=== PATIENT | male | born 2000 | race Two or more races ===

== ENCOUNTER 2021-11-14 10:03 | Emergency (ER) | payer MEDICAID, OTHER ==
[~2021-11-14] VITALS: Ht 175.3 cm; Wt 77.1 kg
[2021-11-14] MEDS ORDERED: CLIN300C8 PO (10:13)
[2021-11-14] MEDS ORDERED: IBUP800T27 PO (10:13)
[2021-11-14 10:18] VITALS: BP 130/92
== END 2021-11-14 10:41 | disposition home or self-care (01) ==
LOC: ER 10:03
DX: K04.7 Periapical abscess without sinus (principal)

== ENCOUNTER 2022-04-08 08:10 | Emergency (ER) | payer MEDICAID ==
[~2022-04-08] VITALS: Ht 177.8 cm; Wt 59.9 kg
[~2022-04-08 08:10] MED LIST: CLIN300C8 PO; IBUP800T27 PO
[2022-04-08 08:15] VITALS: BP 123/78
[2022-04-08] MEDS ORDERED: AMOX-277 PO (08:52)
[2022-04-08] MEDS ORDERED: PRED20TA2 PO (08:52)
== END 2022-04-08 09:41 | disposition home or self-care (01) ==
LOC: ER 08:10
DX: J02.9 Acute pharyngitis, unspecified (principal); E78.5 Hyperlipidemia, unspecified; Z79.1 Long term (current) use of non-steroidal anti-inflammatories (NSAID); Z79.2 Long term (current) use of antibiotics; Z79.899 Other long term (current) drug therapy

== ENCOUNTER 2022-09-04 01:18 | Emergency (ER) | payer MEDICAID ==
[~2022-09-04] VITALS: Ht 177.8 cm; Wt 62.8 kg
[~2022-09-04 01:18] MED LIST changes: +AMOX-277 PO; +PRED20TA2 PO
[2022-09-04 01:49] VITALS: BP 136/81
[2022-09-04] MEDS ORDERED: KETOROLAC TROMETH 60MG/2ML VIAL IM ONE (03:45)
[2022-09-04] MEDS ORDERED: AMOX-277 PO (03:50)
== END 2022-09-04 04:23 | disposition home or self-care (01) ==
LOC: ER 01:22
DX: K04.7 Periapical abscess without sinus (principal); F12.10 Cannabis abuse, uncomplicated; Z88.1 Allergy status to other antibiotic agents
CPT/HCPCS: 96372; 99283; J1885

== ENCOUNTER 2022-11-16 18:42 | Emergency (ER) | payer MEDICAID ==
[~2022-11-16] VITALS: Ht 180.3 cm; Wt 66.2 kg
[2022-11-16] MEDS ORDERED: AMOX-277 PO (20:42)
[2022-11-16] MEDS ORDERED: IBUP800T27 PO (20:42)
[2022-11-16] MEDS ORDERED: cefTRIAXone SOD 1,000 MG VL IM ONE (20:45)
[2022-11-16] MEDS ORDERED: BENZOCAINE (DENTAL) 20 % SPRAY 60ML MT ONE (20:45)
[2022-11-16] MEDS ORDERED: KETOROLAC TROMETH 60MG/2ML VIAL IM ONE (21:00)
[2022-11-16 21:02] VITALS: BP 151/83
== END 2022-11-16 21:04 | disposition home or self-care (01) ==
LOC: ER 18:44
DX: K04.7 Periapical abscess without sinus (principal); F12.10 Cannabis abuse, uncomplicated; Z88.6 Allergy status to analgesic agent; Z88.1 Allergy status to other antibiotic agents
CPT/HCPCS: 96372; 99284; J1885; J0696

== ENCOUNTER 2023-02-08 17:57 | Emergency (ER) | payer MEDICAID, OTHER ==
[~2023-02-08 17:57] MED LIST changes: -AMOX-277 PO; +AMOX875T4 PO; +CLIN300C70 PO; -CLIN300C8 PO; +IBUP-1456 PO; -IBUP800T27 PO
[2023-02-09] MEDS ORDERED: IBUP-1455 PO (08:47)
== END 2023-02-08 18:43 | disposition left against medical advice (07) ==
LOC: ER 17:57
DX: M79.643 Pain in unspecified hand (principal); Z53.21 Procedure and treatment not carried out due to patient leaving prior to being seen by health care provider

== ENCOUNTER 2023-02-09 07:24 | Emergency (ER) | payer OTHER ==
[~2023-02-09] VITALS: Ht 180.3 cm; Wt 65.9 kg
[2023-02-09 07:34] VITALS: BP 109/71
[2023-02-09] MEDS ORDERED: KETOROLAC TROMETH 60MG/2ML VIAL IM ONE (08:00)
[2023-02-09] MEDS ORDERED: IBUP-1455 PO (08:47)
== END 2023-02-09 09:10 | disposition home or self-care (01) ==
LOC: ER 07:24
DX: S60.221A Contusion of right hand, initial encounter (principal); E78.5 Hyperlipidemia, unspecified; Z79.1 Long term (current) use of non-steroidal anti-inflammatories (NSAID); Z79.2 Long term (current) use of antibiotics; Z79.899 Other long term (current) drug therapy; Y04.2XXA Assault by strike against or bumped into by another person, initial encounter; Y93.89 Activity, other specified; Y92.89 Other specified places as the place of occurrence of the external cause; Y99.8 Other external cause status
CPT/HCPCS: 29125; 73130; 96372; 99283; J1885

== ENCOUNTER 2024-07-30 18:55 | Emergency (ER) | payer MEDICAID ==
[~2024-07-30] VITALS: Ht 175.3 cm; Wt 72.0 kg
[~2024-07-30 18:55] MED LIST changes: +CLIN1CAP70 PO; -CLIN300C70 PO; +IBUP-1455 PO
--- NOTE | 2024-07-30 19:15 | ED.PDOC ---
General HPI Comments 23 y.o male presents to the ED for a chief complaint of left sided testicle pain associated with swelling that started 2.5 days ago. Patient reports symptoms presented spontaneously with no recent injury, trauma or urinary symptoms. He denies chills, fever, flank, abdominal or back pain, dysuria, hematuria or other sxs.. Patient denies any medical, surgical history or allergies. Chief Complaint: Testicle Pain Time Seen by MD: 19:07 Primary Care Provider: None Reviewed notes: Nurses Notes, Medications, Allergies Allergies: Coded Allergies: NO KNOWN ALLERGIES (Unverified , 04/08/22) Home Meds Active Scripts Ibuprofen Micronized (Ibuprofen) 800 Mg Tab, 800 MG PO Q8HP PRN, #30 TAB Prov:SHIRLENE PEARL PAC 02/09/23 Ibuprofen (Ibuprofen) 800 Mg Tab, 1 TAB PO TID PRN, #30 TAB 0 Refills Prov:NAZ HARP 11/16/22 Amoxicillin & Pot Clavulanate (Amoxicillin/Potassium Cla) 875 Mg Tab, 1 TAB PO BID for 7 Days, #14 TAB 0 Refills Prov:NAZ HARP 11/16/22 Amoxicillin & Pot Clavulanate (Amoxicillin/Potassium Cla) 875 Mg Tab, 1 TAB PO BID for 10 Days, #20 TAB 0 Refills Prov:MEY GAUTHIER 09/04/22 Prednisone (Prednisone) 20 Mg Tab, 20 MG PO BID for 5 Days, #10 MG 0 Refills Prov:NAZ HARP 04/08/22 Amoxicillin & Pot Clavulanate (Amoxicillin/Potassium Cla) 875 Mg Tab, 1 TAB PO BID for 7 Days, #14 TAB 0 Refills Prov:NAZ HARP 04/08/22 Ibuprofen (Ibuprofen) 800 Mg Tab, 800 MG PO TID PRN, #30 TAB Prov:ABRAHAM HUTTON 11/14/21 Clindamycin Hcl (Clindamycin Hcl) 300 Mg Cap, 300 MG PO QID for 10 Days, #40 CAP Prov:ABRAHAM HUTTON 11/14/21 Information Source: Patient Mode of Arrival: Ambulatory Severity: Moderate Timing: Days (2.5) Duration: Since onset Onset: Spontaneous Symptoms: None History of: None Location male: L Scrotum Penile discharge: None Modifying factors: None associated signs and symptoms: Other Past Medical History PAST MEDICAL HISTORY: Denies Surgical History: Denies all surgeries Family History Family History: Unknown Social History Smoker: Other Alcohol: Occasionally Drugs: Marijuana Lives In: Home Constitutional: denies: chills, diaphoresis, fatigue, fever, malaise, sweats, weakness, others EENTM: denies: blurred vision, double vision, ear bleeding, ear discharge, ear drainage, ear pain, ear ringing, eye pain, eye redness, hearing loss, mouth pain, mouth swelling, nasal discharge, nose bleeding, nose congestion, nose pain, photophobia, tearing, throat pain, throat swelling, voice changes, others Respiratory: denies: cough, hemoptysis, orthopnea, SOB at rest, shortness of breath, SOB with excertion, stridor, wheezing, others Cardiovascular: denies: chest pain, dizzy spells, diaphoresis, Dyspnea on exertion, edema, irregular heart beat, left arm pain, lightheadedness, palpitations, PND, syncope, others Gastrointestinal: denies: abdomen distended, abdominal pain, blood streaked bowels, constipated, diarrhea, dysphagia, difficulty swallowing, hematemesis, melena, nausea, poor appetite, poor fluid intake, rectal bleeding, rectal pain, vomiting, others Genitourinary: reports: testicle pain; denies: burning, dysuria, flank pain, frequency, hematuria, incontinence, penile discharge, penile sore, pain, testicle swelling, urgency, others Neurological: denies: dizziness, fainting, headache, left sided numbness, left sided weakness, numbness, paresthesia, pre-existing deficit, right sided numbness, right sided weakness, seizure, speech problems, tingling, tremors, weakness, others Musculoskeletal: denies: back pain, gout, joint pain, joint swelling, muscle pain, muscle stiffness, neck pain, others Integumetry: denies: bruises, change in color, change in hair/nails, dryness, laceration, lesions, lumps, rash, wounds, others Allergic/Immunocompromised: denies: Difficulty Healing, Frequent Infections, Hives, Itching, others Hematologic/Lymphatic: denies: anemia, blood clots, easy bleeding, easy bruising, swollen glands, others Endocrine: denies: excessive hunger, excessive sweating, excessive thirst, excessive urination, flushing, intolerance to cold, intolerance to heat, u nexplained weight gain, unexplained weight loss, others Psychiatric: denies: anxiety, bipolar disorder, depression, hopeless, panic disorder, schizophrenia, sleepless, suicidal, others All Other Systems: Reviewed and Negative Physical Exam General Appearance: No Apparent Distress HEENT: Normal ENT Inspection Neck: Full Range of Motion, Normal Inspection Respiratory: Lungs Clear, No Accessory Muscle Use, No Respiratory Distress, Normal Breath Sounds Cardiovascular: No Edema, No Murmur, Regular Rate/Rhythm Breast Exam: Deferred Gastrointestinal: Non Tender, Soft Genitalia: Testicle (L testicle mild diffuse tenderness. Normal lie. Cremasteric reflex intact. No edema or scrotal discoloration.) Pelvic: Deferred Rectal: Deferred Extremities: Normal inspection, Normal range of motion, Non-tender, No pedal edema Neurologic: Alert, No Motor Deficits, Normal Affect, Normal Mood, No Sensory Deficits Cerebellar Function: NOT DONE Reflexes: NOT DONE Skin: Dry, Normal Color, Warm Lymphatic: NOT DONE Was a procedure done? Was a procedure done?: No Differential Diagnosis Kidney stone (Female): N/A Penile/Scrotal: Epidiymitis, Prostatitis, UTI, Hydrocele, Testicular Torsion, Urolithiasis X-Ray, Labs, Meds, VS Vital Signs Date Time Temp Pulse Resp B/P (MAP) Pulse Ox O2 Delivery O2 Flow Rate FiO2 07/30/24 21:06 98.8 111 18 125/73 (90) 96 98.8 07/30/24 21:06 111 18 96 Room Air 07/30/24 19:10 98.8 123 18 117/75 (89) 96 Lab Test 07/30/24 19:22 Range/Units White Blood Count 10.2 4.4-10.8 10^3/uL Red Blood Count 4.63 4.5-5.90 10^6/uL Hemoglobin 14.4 13.5-17.5 g/dL Hematocrit 40.8 L 41.0-53.0 % Mean Corpuscular Volume 88.2 80.0-100.0 fL Mean Corpuscular Hemoglobin 31.0 28.0-32.0 pg Mean Corpuscular Hemoglobin Concent 35.1 32.0-36.0 g/dL Red Cell Distribution Width 13.2 11.8-14.3 % Platelet Count 318 140-450 10^3/uL Mean Platelet Volume 6.3 L 6.9-10.8 fL Neutrophils (%) (Auto) 71.2 37.0-80.0 % Lymphocytes (%) (Auto) 15.4 10.0-50.0 % Monocytes (%) (Auto) 12.7 H 0.0-12.0 % Eosinophils (%) (Auto) 0.4 0.0-7.0 % Basophils (%) (Auto) 0.3 0.0-2.0 % Neutrophils # (Auto) 7.3 1.6-8.6 10 ^3/uL Lymphocytes # (Auto) 1.6 0.4-5.4 10 ^3/uL Monocytes # (Auto) 1.3 0-1.3 10 ^3/uL Eosinophils # (Auto) 0 0-0.8 10 ^3/uL Basophils # (Auto) 0 0-0.2 10 ^3/uL Nucleated Red Blood Cells 0.0 % Sodium Level 142 136-145 mmol/L Potassium Level 3.4 L 3.5-5.1 mmol/L Chloride Level 107 98-107 mmol/L Carbon Dioxide Level 25 20-31 mmol/L Anion Gap 10 5-15 Blood Urea Nitrogen 11 9-23 mg/dL Creatinine 0.88 0.700-1.30 mg/dL Glomerular Filtration Rate Calc 122 >90 mL/min BUN/Creatinine Ratio 12.5 10.0-20.0 Serum Glucose 128 H 74-106 mg/dL Calcium Level 9.7 8.7-10.4 mg/dL Current Medications Medications (Trade) Dose Ordered Sig/[place] Route Start Time Stop Time Status Last Admin Acetaminophen/ Hydrocodone Bitart ([place]os[place] 5/325MG Tab) 1 tab ONCE ONCE PO 07/30/24 21:15 07/30/24 21:16 DC 07/30/24 21:10 PROCEDURE(s): TESUS - TESTICULAR ULTRASOUND REASON: L testicular pain ORDER NUMBER(s): [id number], ACCESSION NUMBER(s): [id number] Exam: US TESTICULAR ULTRASOUND Date: 07/30/2024 07:19 PM Clinical History: L testicular pain Comparison: None Technique: Targeted sonographic evaluation of the soft tissues of the [facility] was obtained utilizing grayscale and color Doppler imaging. Findings: RIGHT TESTICLE 4.88 X 3.38 X 4.43 CM. THERE IS NO EVIDENCE OF TESTICULAR TORSION. THE RIGHT EPIDIDYMIS MEASURES 1.78 CM AND APPEARS SLIGHTLY HYPERVASCULAR. LEFT TESTICLE 3.81 x 2.93 x 5.14 cm. There is a left-sided hydrocele. Normal blood flow is seen with no evidence of testicular torsion. The left epididymis measures 1.92 cm appears mildly enlarged and hypervascular. These findings may represent epididymitis. IMPRESSION: 1. No evidence of testicular torsion. 2. Small left hydrocele 3. Increased vascularity to the epididymis with mild enlargement of the left epididymis findings suggest epididymitis. X-Ray, Labs, Meds, VS Comment 23-year-old male with significant past medical history complaining of left testicular pain Vitals remarkable for heart rate 123 Exam remarkable for mild diffuse left testicular tenderness to palpation Testicular ultrasound: IMPRESSION: 1. No evidence of testicular torsion. 2. Small left hydrocele 3. Increased vascularity to the epididymis with mild enlargement of the left epididymis findings suggest epididymitis. CBC and basic metabolic panel remarkable for potassium 3.4, no other abnormalities of acute significance UA pending Patient treated with the following in the ED: Hosston 5/325 mg p.o., K-Dur for 40 mEq p.o., Rocephin 1 g IM On re-evaluation, patient's pain had improved and vitals were stable. Ho spitalization was considered, however the patient had rapid improvement of his symptoms with treatment in the ED, and I no longer feel hospitalization is necessary. Patient appears stable for outpatient treatment and close follow-up Rx ibuprofen, Tylenol, Levaquin Time of 1ST Reevaluation: 19:11 Reevaluation 1ST: Unchanged Patient Education/Counseling: Diagnosis, Treatment, Prognosis Family Education/Counseling: No Family Present Departure 1 Departure Time of Disposition: 21:33 Impression: Primary Impression: Hydrocele Qualified Codes: N43.3 - Hydrocele, unspecified Additional Impression: Epididymitis, left Disposition: HOME / SELF CARE / HOMELESS Condition: Stable Additional Instructions: Your blood tests showed a slightly low potassium, which we have corrected by giving you potassium. Your ultrasound showed epididymitis on the left, which is an infection that is treated with antibiotics. Your ultrasound also showed a small hydrocele on the left, which is a tiny fluid collection that does not require any treatment, but may contribute to the pain you are having. I have prescribed antibiotics to treat the infection, as well as pain medication. Follow-up with your primary doctor in 1-2 days. e-Prescriptions Acetaminophen (Tylenol Extra Strength) 500 Mg Tab 1000 MG PO Q6HP PRN, #30 TAB prn fever or pain Prov: JENNIFER MITCHELL MD 07/30/24 Ibuprofen Micronized (Ibuprofen) 800 Mg Tab 800 MG PO Q8HP PRN, #30 TAB prn fever or pain Prov: JENNIFER MITCHELL MD 07/30/24 Levofloxacin Hemihydrate (LEVAQUIN 500 MG) 500 Mg Tab 1 TAB PO DAILY for 10 Days, #10 TAB Prov: JENNIFER MITCHELL MD 07/30/24 Discharged With: Relative Critical Care Note Critical Care Time?: No Stability Stability form required: No I personally scribed for JENNIFER MITCHELL MD ([email or web address]) on 07/30/24 at 19:15. Electronically submitted by Jackie Jose ([facility]). JENNIFER MITCHELL MD Jul 30, 2024 19:15
[2024-07-30 19:55] LABS: Basophils # (auto) 0 10 ^3/uL (0-0.2); Basophils % (auto) 0.3 % (0.0-2.0); Eosinophils # (auto) 0 10 ^3/uL (0-0.8); Eosinophils % (auto) 0.4 % (0.0-7.0); Hematocrit 40.8 % (41.0-53.0); Hemoglobin 14.4 g/dL (13.5-17.5); Lymphocytes # (auto) 1.6 10 ^3/uL (0.4-5.4); Lymphocytes % (auto) 15.4 % (10.0-50.0); Mean Corpuscular Hgb Conc. 35.1 g/dL (32.0-36.0); Mean Corpuscular Volume 88.2 fL (80.0-100.0); Monocytes # (auto) 1.3 10 ^3/uL (0-1.3); Monocytes % (auto) 12.7 % (0.0-12.0); Neutrophils # (auto) 7.3 10 ^3/uL (1.6-8.6); Neutrophils % (auto) 71.2 % (37.0-80.0); Platelet Count (auto) 318 10^3/uL (140-450); Red Blood Cells 4.63 10^6/uL (4.5-5.90); Red Cell Distribution Width 13.2 % (11.8-14.3); White Blood Cell 10.2 10^3/uL (4.4-10.8)
--- NOTE | 2024-07-30 19:55 | DVH ---
Exam: US TESTICULAR ULTRASOUND Date: 07/30/2024 07:19 PM Clinical History: L testicular pain Comparison: None Technique: Targeted sonographic evaluation of the soft tissues of the [facility] was obtained utiliz ing grayscale and color Doppler imaging. Findings: RIGHT TESTICLE 4.88 X 3.38 X 4.43 CM. THERE IS NO EVIDENCE OF TESTICULAR TORSION. THE RIGHT EPIDIDYMIS MEASURES 1.78 CM AND APPEARS SLIGHTLY HYPERVASCULAR. LEFT TESTICLE 3.81 x 2.93 x 5.14 cm. There is a left-sided hydrocele. Normal blood flow is seen with no evidence of testicular torsion. Th e left epididymis measures 1.92 cm appears mildly enlarged and hypervascular. These findings may rep resent epididymitis. IMPRESSION: 1. No evidence of testicular torsion. 2. Small left hydrocele 3. Increased vascularity to the epididymis with mild enlargement of the left epididymis findings sugg est epididymitis.
[2024-07-30 20:11] LABS: Chloride 107 mmol/L (98-107); Potassium 3.4 mmol/L (3.5-5.1); Sodium 142 mmol/L (136-145)
[2024-07-30 20:12] LABS: Anion Gap 10 (5-15); Calcium 9.7 mg/dL (8.7-10.4); Carbon Dioxide 25 mmol/L (20-31)
[2024-07-30 20:17] LABS: BUN/Creatinine Ratio 12.5 (10.0-20.0); Blood Urea Nitrogen 11 mg/dL (9-23); Glucose 128 mg/dL (74-106)
[2024-07-30 21:06] VITALS: BP 125/73; PULSE 111; RESP 18; TEMP 98.8; O2SAT 96
[2024-07-30] MEDS: HYDROcodone-ACET 5/325MG TAB PO ONE (21:10)
[2024-07-30] MEDS ORDERED: ACET-1304 PO (21:37)
[2024-07-30] MEDS ORDERED: IBUP-1455 PO (21:37)
[2024-07-30] MEDS ORDERED: LEVO500T91 PO (21:37)
[2024-07-30] MEDS: cefTRIAXone SOD 1,000 MG VL IM ONE (21:54)
[2024-07-30] MEDS: POTASSIUM CHL 20 Meq TABLET PO ONE (22:04)
== END 2024-07-30 22:05 | disposition home or self-care (01) ==
LOC: ER 19:01
DX: N43.3 Hydrocele, unspecified (principal); N45.1 Epididymitis; F12.90 Cannabis use, unspecified, uncomplicated; Z79.899 Other long term (current) drug therapy
CPT/HCPCS: 36415; 76870; 80048; 85025; 96372; 99285; J0696